=== PATIENT | female | born 1980 | race Caucasian/White ===

== ENCOUNTER 2021-04-22 22:59 | Emergency (ER) | payer SELFPAY ==
[2021-04-22 23:21] VITALS: BP 147/91; PULSE 128
[2021-04-22] MEDS: Ibuprofen 200 MG Tab PO ONE (23:46)
[2021-04-23] MEDS: Bacitracin Oint 28.35 GM Tube TOP STA (00:49)
== END 2021-04-23 01:10 | disposition home or self-care (01) ==
LOC: CC.ED 22:59
DX: T33.822A Superficial frostbite of left foot, initial encounter (principal); T33.821A Superficial frostbite of right foot, initial encounter; T33.012A Superficial frostbite of left ear, initial encounter; T33.011A Superficial frostbite of right ear, initial encounter; X31.XXXA Exposure to excessive natural cold, initial encounter
CPT/HCPCS: 99283; A9270-GY

== ENCOUNTER 2021-05-09 11:10 | Emergency (ER) | payer BC, MEDICAID ==
[2021-05-09] MEDS: Morphine 2 MG/ML SYRINGE IVPUSH ONE (12:03)
[2021-05-09] MEDS: Morphine 2 MG/ML SYRINGE IM ONE (12:29)
[2021-05-09] MEDS: Morphine 2 MG/ML SYRINGE IV ONE (12:33)
== END 2021-05-09 12:49 | disposition home or self-care (01) ==
LOC: CC.ED 11:10
DX: T33.822A Superficial frostbite of left foot, initial encounter (principal); T33.821A Superficial frostbite of right foot, initial encounter; Z72.0 Tobacco use; X31.XXXA Exposure to excessive natural cold, initial encounter
CPT/HCPCS: 96374; 99283; 99283-25; J2270

== ENCOUNTER 2021-10-19 21:13 | Emergency (ER) | payer OTHER, MEDICAID ==
[2021-10-19 21:41] LABS: CHLORIDE,CL 109 mEq/L (98-106); SODIUM,NA 147 mEq/L (136-145)
[2021-10-19 21:44] LABS: ESTIMATED GFR 111 mL/min (>=60)
[2021-10-19] MEDS: Ondansetron 4 MG/2 ML SDV IVPUSH SCH (21:46)
[2021-10-19] MEDS: Ketorolac 30 MG/ML SDV IVPUSH ONE (21:47)
[2021-10-19 22:09] LABS: AMPHETAMINES,URINE NEGATIVE (NEGATIVE); BARBITURATES,URINE NEGATIVE (NEGATIVE); BENZODIAZEPINE,URINE NEGATIVE (NEGATIVE); MDMA (ECSTASY), URINE NEGATIVE (NEGATIVE); METHADONE,URINE NEGATIVE (NEGATIVE); METHAMPHETAMINES,URINE POSITIVE (NEGATIVE); OPIATES,URINE NEGATIVE (NEGATIVE); OXYCODONE,URINE NEGATIVE (NEGATIVE); PHENCYCLIDINE,URINE NEGATIVE (NEGATIVE); TCA,URINE NEGATIVE (NEGATIVE)
[2021-10-19] MEDS: Iopamidol 755 Mg/ML 100 ML Bottle IVPUSH ONE (23:19)
[2021-10-20] MEDS: fentaNYL 50 MCG/ML SDV IVPUSH ONE (00:53)
[2021-10-20] MEDS: Take Home: Cyclobenzaprine 10 MG Tab, 4 Tab Pack PO ONE (01:48)
== END 2021-10-20 01:54 | disposition home or self-care (01) ==
LOC: CC.ED 21:13
DX: S30.1XXA Contusion of abdominal wall, initial encounter (principal); S20.211A Contusion of right front wall of thorax, initial encounter; S10.93XA Contusion of unspecified part of neck, initial encounter; V49.10XA Passenger injured in collision with unspecified motor vehicles in nontraffic accident, initial encounter
CPT/HCPCS: 36415; 51702; 70450; 71260; 72125; 74177; 80053; 80305-QW; 80307; 81001; 81025; 83735; 85025; 96374; 96375; 99284; 99284-25; A9270-GY; J1885; J2405; J3010; Q9967

== ENCOUNTER 2021-11-16 23:05 | Emergency (ER) | payer MEDICAID ==
[~2021-11-16 23:05] MED LIST: Sodium Chloride 0.9% 1,000 ML ONE
[2021-11-16] MEDS ORDERED: Sodium Chloride 0.9% 10 ML Syringe FLUSH PRN (23:27)
[2021-11-16] MEDS ORDERED: Sodium Chloride 0.9% 1,000 ML IV ONE (23:27)
[2021-11-16 23:55] LABS: CHLORIDE,CL 103 mEq/L (98-106); SODIUM,NA 138 mEq/L (136-145)
[2021-11-17 00:04] LABS: ESTIMATED GFR 27 mL/min (>=60)
[2021-11-17 00:05] LABS: AMPHETAMINES,URINE POSITIVE (NEGATIVE); BARBITURATES,URINE NEGATIVE (NEGATIVE); BENZODIAZEPINE,URINE NEGATIVE (NEGATIVE); MDMA (ECSTASY), URINE POSITIVE (NEGATIVE); METHADONE,URINE NEGATIVE (NEGATIVE); METHAMPHETAMINES,URINE POSITIVE (NEGATIVE); OPIATES,URINE NEGATIVE (NEGATIVE); OXYCODONE,URINE NEGATIVE (NEGATIVE); PHENCYCLIDINE,URINE NEGATIVE (NEGATIVE); TCA,URINE NEGATIVE (NEGATIVE)
[2021-11-17] MEDS ORDERED: Sodium Chloride 0.9% 500 ML IV SCH (01:30)
== END 2021-11-17 01:28 ==
LOC: CC.ED 23:05
DX: S01.21XA Laceration without foreign body of nose, initial encounter (principal); S01.511A Laceration without foreign body of lip, initial encounter; R04.0 Epistaxis; F15.129 Other stimulant abuse with intoxication, unspecified; F16.10 Hallucinogen abuse, uncomplicated
CPT/HCPCS: 12011; 36415; 80053; 80305-QW; 80307; 81001; 81025; 82550; 85025; 93010; 96360; 96361; 99284; 99285-25; J7030; J7040

== ENCOUNTER 2022-06-07 01:00 | Emergency (ER) | payer MEDICAID | END 2022-06-07 02:04 | disposition home or self-care (01) | LOC: CC.ED 01:00 | DX: Z04.3 Encounter for examination and observation following other accident (principal); Z72.0 Tobacco use | CPT/HCPCS: 99283 ==